=== PATIENT | female | born 1970 | race Caucasian/White ===

== ENCOUNTER 2017-09-17 06:55 | Day surgery (SDC) | payer OTHER ==
[2017-09-17] MEDS ORDERED: LIDOCAINE 4% SOLUTION 50 ML BTL (08:28)
[2017-09-17] MEDS ORDERED: FENTAnyl 50 MCG/ML VIAL (09:03)
[2017-09-17] MEDS ORDERED: MIDAZOLAM 1 MG/ML 2 ML INJ ×2 (09:03)
== END 2017-09-17 10:55 | disposition home or self-care (01) ==
LOC: GIL 06:55
DX: K29.50 Unspecified chronic gastritis without bleeding (principal)
CPT/HCPCS: 43239; 88305; 88312

== ENCOUNTER 2018-01-15 05:47 | Inpatient (IN) | payer OTHER ==
[2018-01-15] MEDS ORDERED: DEXTROSE 5%-0.9% NACL 1,000 ML IV (06:00)
[2018-01-15] MEDS ORDERED: CEFAZOLIN 2 GM/50 ML (PMX) 50 ML IVPB (06:00)
[2018-01-15] MEDS ORDERED: CEFAZOLIN 1 GM INJ (07:00)
[2018-01-15] MEDS ORDERED: SUCCINYLCHOLINE CHLORIDE 100 MG/5 ML SYG IV (07:00)
[2018-01-15] MEDS ORDERED: LIDOCAINE 2% (SDV) 5 ML INJ (07:00)
[2018-01-15] MEDS ORDERED: ACETAMINOPHEN 1000 MG/100 ML IVPB (07:00)
[2018-01-15] MEDS ORDERED: FENTAnyl 50 MCG/ML VIAL ×2 (07:25→10:23)
[2018-01-15] MEDS ORDERED: PROPOFOL 20 ML (07:26)
[2018-01-15] MEDS ORDERED: MIDAZOLAM 1 MG/ML 2 ML INJ (07:26)
[2018-01-15] MEDS ORDERED: ROCURONIUM 50 MG INJ (07:26)
[2018-01-15] MEDS ORDERED: ONDANSETRON 4 MG INJ ×2 (07:29→10:12)
[2018-01-15] MEDS ORDERED: DEXAMETHASONE 4 MG/ML 1 ML INJ (09:37)
[2018-01-15] MEDS ORDERED: METOCLOPRAMIDE 10 MG INJ (09:51)
[2018-01-15] MEDS: LACTATED RINGER'S 1,000 ML IV ×3 (10:04→20:59)
[2018-01-15] MEDS ORDERED: HYDROmorphONE 1 MG/5 ML IV SYRINGE IV ×2 (10:12→10:30)
[2018-01-15] MEDS: HYDROmorphONE 1 MG/5 ML IV SYRINGE IV ×2 (10:29→10:31)
[2018-01-15] MEDS ORDERED: LABETALOL HCL 20MG INJ IV (10:30)
[2018-01-15] MEDS ORDERED: MEPERIDINE 25 MG INJ IV (10:30)
[2018-01-15] MEDS ORDERED: HYDROCODONE/APAP (5/325) TAB PO (10:30)
[2018-01-15] MEDS ORDERED: BISACODYL (EC) 5 MG TAB PO (10:30)
[2018-01-15] MEDS ORDERED: hydrALAzine 20 MG INJ IV (10:30)
[2018-01-15] MEDS ORDERED: ZOLPIDEM 5 MG TAB PO (10:30)
[2018-01-15] MEDS ORDERED: DIPHENHYDRAMINE 50 MG CAP PO (10:30)
[2018-01-15] MEDS ORDERED: KETOROLAC 30 MG INJ IV (10:30)
[2018-01-15] MEDS ORDERED: FENTAnyl 50 MCG/ML VIAL IV (10:30)
[2018-01-15] MEDS ORDERED: ONDANSETRON 4 MG INJ IV (10:30)
[2018-01-15] MEDS: ONDANSETRON 4 MG INJ IV ×2 (10:32→18:40)
[2018-01-15] MEDS: FENTAnyl 50 MCG/ML VIAL IV ×2 (10:32→10:36)
[2018-01-15] MEDS: KETOROLAC 30 MG INJ IV (10:55)
[2018-01-15] MEDS: DIPHENHYDRAMINE 50 MG INJ IV (10:55)
[2018-01-15] MEDS: METOCLOPRAMIDE 10 MG TAB PO ×3 (13:01→23:40)
[2018-01-15] MEDS: CEFAZOLIN 1 GM/50 ML (PMX) 50 ML IVPB ×2 (13:48→20:59)
[2018-01-15] MEDS: HYDROmorphONE 1 MG/ML SYG IV ×3 (13:48→21:07)
[2018-01-16] MEDS: ONDANSETRON 4 MG INJ IV (01:12)
[2018-01-16] MEDS: HYDROmorphONE 1 MG/ML SYG IV ×2 (01:13→05:13)
[2018-01-16] MEDS: LACTATED RINGER'S 1,000 ML IV (05:13)
[2018-01-16] MEDS: CEFAZOLIN 1 GM/50 ML (PMX) 50 ML IVPB (05:13)
[2018-01-16] MEDS: METOCLOPRAMIDE 10 MG TAB PO ×3 (05:13→18:33)
[2018-01-16 05:31] LABS: ADD MAN DIFF? NO
[2018-01-16 05:41] LABS: BASOPHILS % 0.3 % (0.0-2.0); EOSINOPHILS # 0.1 10^3/ul (0.0-0.5); HEMATOCRIT 33.8 % (37.0-47.0); HEMOGLOBIN 10.7 g/dl (12.0-16.0); LYMPHOCYTES # 2.2 10^3/ul (0.8-2.9); LYMPHOCYTES % 33.4 % (15.0-51.0); MEAN CORPUSCULAR HEMOGLOBIN 29.2 pg (29.0-33.0); MEAN CORPUSCULAR HGB CONC 31.7 g/dl (32.0-37.0); MEAN CORPUSCULAR VOLUME 92.3 fl (82.0-101.0); MEAN PLATELET VOLUME 10.6 fl (7.4-10.4); MONOCYTE # 0.6 10^3/ul (0.3-0.9); MONOCYTES % 8.7 % (0.0-11.0); NEUTROPHIL # 3.8 10^3/ul (1.6-7.5); NEUTROPHILS % 56.3 % (39.0-77.0); PLATELET COUNT 272 10^3/UL (140-415); RED BLOOD COUNT 3.66 10^6/ul (4.20-5.40); RED CELL DISTRIBUTION WIDTH 13.9 % (11.5-14.5)
[2018-01-16 05:41] LABS: WHITE BLOOD COUNT 6.7 10^3/ul (4.8-10.8)
[2018-01-16 06:04] LABS: ANION GAP 7 (8-16); BLOOD UREA NITROGEN 7 mg/dl (7-20); CARBON DIOXIDE 29 mmol/L (21-31); CHLORIDE 109 mmol/L (97-110); CREATININE 0.63 mg/dl (0.44-1.00); SODIUM 141 mmol/L (135-144)
[2018-01-16] MEDS: HYDROCODONE/APAP (5/325) TAB PO (08:38)
[2018-01-16] MEDS: KETOROLAC 30 MG INJ IV ×2 (12:28→18:33)
[2018-01-16] MEDS ORDERED: ESTRADIOL VALERATE 20 MG/0.5 ML INJ IM (13:30)
[2018-01-16] MEDS: ESTRADIOL VALERATE 20 MG/0.5 ML INJ IM (14:17)
[2018-01-17] MEDS: KETOROLAC 30 MG INJ IV ×2 (00:19→05:36)
[2018-01-17] MEDS: METOCLOPRAMIDE 10 MG TAB PO ×5 (00:19→23:24)
[2018-01-17] MEDS: HYDROCODONE/APAP (5/325) TAB PO ×2 (09:15→17:19)
[2018-01-17] MEDS: BISACODYL (EC) 5 MG TAB PO (11:11)
[2018-01-17] MEDS: IBUPROFEN 800 MG TAB PO ×2 (13:05→20:40)
[2018-01-17] MEDS ORDERED: HYDROmorphONE 4 MG TAB PO (16:00)
[2018-01-18] MEDS: METOCLOPRAMIDE 10 MG TAB PO ×2 (05:10→12:30)
[2018-01-18] MEDS: IBUPROFEN 800 MG TAB PO ×2 (08:25→13:25)
== END 2018-01-18 16:12 | disposition home or self-care (01) | DRG 743 ==
LOC: REC 05:47 → MS1 11:14
PROC: 0UT90ZZ Resection of Uterus, Open Approach (ICD-10-PCS; principal; 2018-01-15 07:30)
PROC: 0UT70ZZ Resection of Bilateral Fallopian Tubes, Open Approach (ICD-10-PCS; 2018-01-15 07:30)
DX: D25.1 Intramural leiomyoma of uterus (principal); R10.2 Pelvic and perineal pain; N73.6 Female pelvic peritoneal adhesions (postinfective); K29.70 Gastritis, unspecified, without bleeding; N92.1 Excessive and frequent menstruation with irregular cycle
CPT/HCPCS: 80051; 82565; 84520; 85025; 86850; 86900; 86901; 86920; 87086; 88302; 88305; 93005